=== PATIENT | female | born 1990 | race Two or more races ===

== ENCOUNTER 2024-09-20 09:55 | Emergency (ER) | payer MEDICAID, OTHER ==
[~2024-09-20] VITALS: Ht 160 cm; Wt 46.0 kg
[2024-09-20 11:42] VITALS: BP 143/63; PULSE 84; RESP 16; TEMP 98; O2SAT 98
[2024-09-20] MEDS ORDERED: CYCL-838 PO (11:50)
[2024-09-20] MEDS ORDERED: IBU600T PO (11:50)
== END 2024-09-20 12:01 | disposition home or self-care (01) ==
LOC: ER 09:55
DX: S13.8XXA Sprain of joints and ligaments of other parts of neck, initial encounter (principal); R51.9 Headache, unspecified; R42 Dizziness and giddiness; Y08.89XA Assault by other specified means, initial encounter; Y93.9 Activity, unspecified; Y92.89 Other specified places as the place of occurrence of the external cause; Y99.8 Other external cause status
CPT/HCPCS: 70450; 72040; 81025